=== PATIENT | male | born 1960 | race Native Hawaiian/Other Pacific Islander ===

== ENCOUNTER 2016-07-15 05:45 | Emergency (ER) | payer OTHER ==
[~2016-07-15] VITALS: Ht 177.8 cm; Wt 99.8 kg
[2016-07-15 07:02] LABS: PLATELET COUNT 181 K/uL (142-355)
[2016-07-15 08:00] VITALS: BP 179/88; TEMP 97.6
== END 2016-07-15 08:00 | disposition home or self-care (01) ==
LOC: ED 05:45
DX: N20.1 Calculus of ureter (principal); N23 Unspecified renal colic; N39.0 Urinary tract infection, site not specified; N28.89 Other specified disorders of kidney and ureter; R91.1 Solitary pulmonary nodule
CPT/HCPCS: 36415; 81000; 85027; 99283; J1885